=== PATIENT | male | born 1980 ===

== ENCOUNTER 2018-01-27 07:23 | Emergency (ER) | payer BC ==
[2018-01-27 07:38] VITALS: BP 129/74
--- NOTE | 2018-01-27 08:24 | UC ---
Throat Pain/Nasal Umesh HPI - HPI Summary HPI Summary: 3 days of sore throat, pain with swallowing, swollen tonsils and fever Tmax 101.4. Last dose ibuprofen 4 hours ago. Also complains of some mild PND but denies any cough, nausea/vomiting. - History of Current Complaint Chief Complaint: UCGeneralIllness Stated Complaint: THROAT PAIN Time Seen by Provider: 01/27/18 07:27 Hx Obtained From: Patient Onset/Duration: Gradual Onset, Lasting Days, Still Present Severity: Moderate Pain Intensity: 6 Pain Scale Used: 0-10 Numeric Cough: None Associated Signs & Symptoms: Positive: Fever - Allergies/Home Medications Allergies/Adverse Reactions: Allergies Allergy/AdvReac Type Severity Reaction Status Date / Time No Known Allergies Allergy Verified 01/27/18 07:38 PMH/Surg Hx/FS Hx/Imm Hx Previously Healthy: Yes - Surgical History Surgical History: Yes Surgery Procedure, Year, and Place: wisdom teeth - Family History Known Family History: Positive: Other - denies hx of gout Negative: Hypertension - Social History Alcohol Use: None Substance Use Type: None Smoking Status (MU): Never Smoked Tobacco - Immunization History Most Recent Tetanus Shot: 1-2 years ago Review of Systems Constitutional: Fever, Fatigue ENT: Sore Throat Respiratory: Negative Cardiovascular: Negative Gastrointestinal: Negative All Other Systems Reviewed And Are Negative: Yes Physical Exam Triage Information Reviewed: Yes Appearance: Well-Appearing - FATIGUED, No Pain Distress, Well-Nourished, Obese Vital Signs: Initial Vital Signs Temp 97 F 01/27/18 07:36 Pulse 83 01/27/18 07:36 Resp 18 01/27/18 07:36 BP 129/74 01/27/18 07:36 Pulse Ox 95 01/27/18 07:36 Laboratory Tests 01/27/18 07:43 Group A Strep Rapid Negative Eyes: Positive: Conjunctiva Clear ENT: Positive: Hearing grossly normal, Pharyngeal erythema, TMs normal, Tonsillar swelling, Tonsillar exudate Neck: Positive: Supple, No Lymphadenopathy Respiratory Exam: Normal Cardiovascular Exam: Normal Abdomen Description: Positive: Soft Musculoskeletal: Positive: No Edema Neurological: Positive: Alert Psychological: Positive: Age Appropriate Behavior Skin: Negative: rashes Throat Pain/Nasal Course/Dx - Differential Dx/Diagnosis Provider Diagnoses: TONSILLITIS Discharge - Sign-Out/Discharge Documenting (check all that apply): Patient Departure All imaging exams completed and their final reports reviewed: No Studies - Discharge Plan Condition: Stable Disposition: HOME Prescriptions: Amoxicillin PO (*) [Amoxicillin 500 MG CAP*] 1,000 mg PO DAILY #20 cap predniSONE TAB* [Deltasone 20 MG TAB*] 40 mg PO DAILY #6 tab Patient Education Materials: Pharyngitis (ED), Tonsillitis (ED) Referrals: No Primary Care Phys,NOPCP [Primary Care Provider] - Additional Instructions: STREP TEST TODAY WAS NEGATIVE BUT GIVEN YOUR CLINICAL PRESENTATION WILL COVER FOR STREP WITH AMOXICILLIN. TAKE FOR THE FULL 10 DAYS. CONSIDER POSSIBLE INFECTIOUS MONONUCLEOSIS WHICH IS A VIRUS AND JUST TAKES TIME TO RECOVER. STAY WELL HYDRATED. IBUPROFEN NEEDED FOR FEVER AND DISCOMFORT. PREDNISONE MAY HELP WITH SWELLING AND DISCOMFORT IN YOUR THROAT. OTC CHLORASEPTIC OR CEPACOL LOZENGES AND/OR IBUPROFEN FOR SORE THROAT NEEDED ONCE SYMPTOMS RESOLVED - NEW TOOTHBRUSH DO NOT SHARE FOOD, DRINK, UTENSILS CALL THE NUMBER BELOW FOR ASSISTANCE IN ESTABLISHING WITH A PCP An additional resource available to assist in finding the appropriate physician for your health care needs is [facility] ([facility]). You may contact them by calling [phone]. - Billing Disposition and Condition Condition: STABLE Disposition: Home
== END 2018-01-27 08:29 | disposition home or self-care (01) ==
LOC: UCEAST 07:23
DX: J03.90 Acute tonsillitis, unspecified (principal)
CPT/HCPCS: 87651; 99212; G0463

== ENCOUNTER 2018-12-03 13:00 | Emergency (ER) | payer BC ==
[2018-12-03 13:36] VITALS: BP 160/89
[2018-12-03] MEDS ORDERED: Ipratropium 0.5MG/2.5ML NEB* 0.5 MG/2.5 ML NEB.SOLN INH ONE ×2 (14:01→14:44)
[2018-12-03] MEDS ORDERED: Albuterol 2.5 MG/3 ML NEB.SOL* (0.083%) INH ONE ×2 (14:01→14:44)
--- NOTE | 2018-12-03 14:06 | UC ---
Respiratory Complaint HPI - HPI Summary HPI Summary: The patient is a 38-year-old male who has felt ill for 6 days. It initially started with runny nose and cough . About 5 days ago it seemed to move down into his chest and he developed progressively worsening cough chest tightness and wheezing. 2 days ago he felt quite short of breath. Currently he feels short of breath only with exertion but feels very fatigued for the past 4-5 days he has been feverish and had chills. He states his temperature was as high as 103F. His had no nausea vomiting or diarrhea. 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 He has missed a few days of work due to his illness. He has no past history of asthma bronchitis or pneumonia - History of Current Complaint Chief Complaint: UCRespiratory Stated Complaint: FLU SYMPTOMS Time Seen by Provider: 12/03/18 13:38 Hx Obtained From: Patient Onset/Duration: Gradual Onset, Lasting Days Timing: Constant Severity Initially: Mild Severity Currently: Moderate Pain Intensity: 6 Pain Scale Used: 0-10 Numeric Character: Cough: Productive Alleviating Factors: Nothing Associated Signs And Symptoms: Positive: Dyspnea, Fever, Chills, Wheezing, URI, Nasal Congestion - Allergies/Home Medications Allergies/Adverse Reactions: Allergies Allergy/AdvReac Type Severity Reaction Status Date / Time No Known Allergies Allergy Verified 12/03/18 13:36 PMH/Surg Hx/FS Hx/Imm Hx Previously Healthy: Yes - Surgical History Surgical History: Yes Surgery Procedure, Year, and Place: wisdom teeth - Family History Known Family History: Positive: Respiratory Disease - sib with asthma, Other - denies hx of gout Negative: Hypertension - Social History Alcohol Use: Rare Substance Use Type: None Smoking Status (MU): Never Smoked Tobacco - Immunization History Most Recent Tetanus Shot: 1-2 years ago Review of Systems All Other Systems Reviewed And Are Negative: Yes Constitutional: Positive: Fever, Chills, Fatigue Skin: Positive: Negative Eyes: Positive: Negative ENT: Positive: Nasal Discharge, Sinus Congestion Respiratory: Positive: Shortness Of Breath, Cough Cardiovascular: Positive: Negative Gastrointestinal: Positive: Negative Genitourinary: Positive: Negative Motor: Positive: Negative Neurovascular: Positive: Negative Musculoskeletal: Positive: Negative Neurological: Positive: Negative Psychological: Positive: Negative Physical Exam Triage Information Reviewed: Yes Appearance: Well-Appearing, No Pain Distress, Well-Nourished Vital Signs: Initial Vital Signs Temp 98.6 F 12/03/18 13:31 Pulse 89 12/03/18 13:31 Resp 18 12/03/18 13:31 BP 160/89 12/03/18 13:31 Pulse Ox 88 12/03/18 13:31 Vital Signs Reviewed: Yes Eyes: Positive: Conjunctiva Clear ENT: Positive: Normal ENT inspection, Pharynx normal, Nasal congestion, Nasal drainage. Negative: Trismus, Muffled voice, Hoarse voice, Sinus tenderness Dental Exam: Normal Neck: Positive: Supple, Nontender, No Lymphadenopathy Respiratory: Positive: No accessory muscle use, Wheezing Cardiovascular: Positive: RRR, No Murmur Musculoskeletal: Positive: ROM Intact, No Edema Neurological: Positive: Alert Psychological Exam: Normal Skin Exam: Normal Diagnostics - Radiology No standard instances Radiology Interpretation Completed By: Radiologist Summary of Radiographic Findings: BILATERAL INTERSTITIAL INFILTRATES RECOMMEND FOLLOW-UP CHEST X-RAYS TO RESOLUTION Re-Evaluation - Re-Evaluation First Eval Re-Evaluation Time: 14:25 Change: Improved - subjectively improved, wheezing has lessened, O2 sat still 88 % Respiratory Course/Dx - Differential Dx/Diagnosis Provider Diagnosis: Bilateral pneumonia, Bronchospasm with bronchitis, acute Discharge ED - Sign-Out/Discharge Documenting (check all that apply): Patient Departure All imaging exams completed and their final reports reviewed: Yes - Discharge Plan Condition: Stable Disposition: HOME Patient Education Materials: Pneumonia (ED), How to Use a Metered-Dose Inhaler and a Spacer (ED) Referrals: [facility] [Outside] - 3 Days Additional Instructions: use inhaler 2 puffs 4x day for 7 days TO ER FOR WORSENING SYMPTOMS or if still feverish in 48 hours rest fluids tylenol IMPRESSION: BILATERAL INTERSTITIAL INFILTRATES RECOMMEND FOLLOW-UP CHEST X-RAYS TO RESOLUTION You have pneumonia in both lungs (see above). The radiologist suggests repeat CXR to assure thing clear up. Often these are done in 2-3 weeks. you need to follow up with this you BP was a little high and will need following - Billing Disposition and Condition Condition: STABLE Disposition: Home
[2018-12-03] MEDS ORDERED: predniSONE TAB* 20 MG PO ONE (14:43)
[2018-12-03] MEDS ORDERED: Amoxicillin/Clavulanate TAB* 875 MG PO ONE (14:43)
[2018-12-03] MEDS ORDERED: Albuterol HFA INHALER* 8 gm MDI INH ONE (15:28)
== END 2018-12-03 15:50 | disposition home or self-care (01) ==
LOC: UCEAST 13:00
DX: J18.9 Pneumonia, unspecified organism (principal); J20.9 Acute bronchitis, unspecified
CPT/HCPCS: 71046; 99213; A9270-GY; G0463; J7512